=== PATIENT | male | born 1945 | race Caucasian/White ===

== ENCOUNTER → 2018-04-08 | Outpatient (CLI) | payer MEDICARE, OTHER ==
--- NOTE | 2018-04-08 21:05 | MRI ---
EXAM DESCRIPTION: Brain w/o Contrast: MRI. CLINICAL HISTORY: Unspecified intracranial injury with loss of consciousness of uns COMPARISON: CT scan of the head 05/05/2012. TECHNIQUE: Multiplanar, high-field MRI unit, multiple diffusion sequences, multiple conventional sequences without contrast. FINDINGS: Bilateral scattered multifocal regions of hyperintense FLAIR and T2-weighted signal in the periventricular white matter and klein-white matter junctions of the cerebral hemispheres. . More prominent around the frontal horns and occipital horns of the lateral ventricles. Bilateral symmetric hyperintense foci in the basal ganglia. Bilateral calcium deposits in the basal ganglia. No hemorrhage, no cerebral edema, no mass-effect. Normal signal in the brainstem and cerebellar hemispheres. No hemorrhage, no cerebral edema, no mass-effect. Concordance of the diffusion and non-diffusion sequences with no diffusion restriction. Cortical sulci, ventricles, and other CSF spaces, and the subdural spaces are minimally prominent for patient's age. No effacement or displacement. No midline shift. No extra-axial hemorrhage. Normal flow signal void in the major vessels of the koi Siddiqi, and the venous sinuses. IACs are symmetric bilaterally. Fluid or edema signal in the bilateral mastoid air cells. More signal in the left mastoid air cells. No mass effect in the bilateral cerebellopontine angles. Pituitary gland occupies most of the sella. Base of the cerebellar tonsils is above the level of the foramen magnum. Minimal mucosal thickening in the paranasal sinuses. Posterior right septal deviation. The bony calvarium is intact. IMPRESSION: 1. Bilateral symmetric regions of hyperintense signal in the cerebral hemispheres most likely related to cerebral microvascular disease. No hemorrhage or diffusion restriction. No cerebral edema or mass effect. 2. Cortical atrophy is interpreted to be slightly prominent for patient's age. Bilateral inflammatory changes in the mastoid air cells in the paranasal sinuses. Electronically signed by: Frandy Hernandez MD 04/08/2018 9:04 PM CDT
== END ==
LOC: MRI 13:50
PROVIDERS: ATTEND Nurse Practitioner
DX: H90.5 Unspecified sensorineural hearing loss (principal); S09.90XD Unspecified injury of head, subsequent encounter

== ENCOUNTER → 2020-08-12 | Outpatient (CLI) | payer MEDICARE | LOC: EDSTATUS 10:05 → HHH 14:28 → TMH 14:28 | PROVIDERS: ATTEND Emergency Medicine | DX: K70.31 Alcoholic cirrhosis of liver with ascites (principal) | CPT/HCPCS: 82140; G0480 ==